=== PATIENT | male | born 1935 | race Caucasian/White ===

== ENCOUNTER 2022-07-31 07:26 | Inpatient (IN) | payer BC ==
[~2022-07-31] VITALS: Ht 175.3 cm; Wt 74.9 kg
[2022-07-31 08:05] LABS: Basophils # (auto) 0 10 ^3/uL (0-0.2); Basophils % (auto) 0.2 % (0.0-2.0); Eosinophils # (auto) 0 10 ^3/uL (0-0.8); Hematocrit 44.7 % (41.0-53.0); Hemoglobin 15.7 g/dL (13.5-17.5); Lymphocytes # (auto) 1.1 10 ^3/uL (0.4-5.4); Lymphocytes % (auto) 14.2 % (10.0-50.0); Mean Corpuscular Hemoglobin 32.7 pg (28.0-32.0); Mean Corpuscular Hgb Conc. 35.2 g/dL (32.0-36.0); Mean Corpuscular Volume 92.9 fL (80.0-100.0); Monocytes % (auto) 13.3 % (0.0-12.0); Neutrophils # (auto) 5.6 10 ^3/uL (1.6-8.6); Neutrophils % (auto) 72.3 % (37.0-80.0); Nucleated Red Blood Cells % 0.1 %; Red Blood Cells 4.81 10^6/uL (4.5-5.90); Red Cell Distribution Width 12.6 % (11.8-14.3); White Blood Cell 7.8 10^3/uL (4.4-10.8)
[2022-07-31 08:16] LABS: Albumin 3.4 g/dL (3.4-5.0); Calcium 8.6 mg/dL (8.5-10.1); Potassium 4.2 mmol/L (3.5-5.1)
[2022-07-31 08:20] LABS: Bilirubin, Total 0.8 mg/dL (0.2-1.0); Total Protein 6.9 g/dL (6.4-8.2)
[2022-07-31] MEDS ORDERED: ACETAMINOPHEN 325 MG TAB PO PRN (10:15)
[2022-07-31] MEDS ORDERED: ONDANSETRON HCL 4 MG/2 ML VIAL IV PRN (10:15)
[2022-07-31] MEDS ORDERED: DOCUSATE SOD 100 MG CAP PO PRN (10:15)
[2022-07-31] MEDS ORDERED: SODIUM CHLORIDE 0.9% 1,000 ML IV ONE (10:15)
[2022-07-31] MEDS ORDERED: SODIUM CHLORIDE 0.9% 1,000 ML IV SCH (10:15)
[2022-07-31] MEDS ORDERED: NITROGLYCERIN 0.4 MG SL TAB SL PRN (10:15)
[2022-07-31] MEDS ORDERED: MORPHINE SULFATE INJ 2 MG/ml SYRG IV PRN (10:15)
[2022-07-31] MEDS ORDERED: ALBUTEROL SULF HFA 90MCG INH 200DOSE IN PRN (10:30)
[2022-07-31] MEDS ORDERED: REMDESIVIR PER PHARMACY 0 ML IV SCH (10:30)
[2022-07-31] MEDS ORDERED: ACETAMINOPHEN 500 MG TAB PO PRN (10:30)
[2022-07-31 11:10] LABS: Magnesium 2.4 mg/dL (1.6-2.6)
[2022-07-31 11:23] LABS: Thyroid Stimulating Hormone 1.6 uIU/mL (0.358-3.74)
[2022-07-31 11:53] LABS: CRP High Sensitivity 8.2 mg/dL (< 0.3)
[2022-07-31 12:54] LABS: Urine WBC None Seen /hpf (0 - 3)
[2022-07-31 13:08] LABS: Urine Bacteria NONE SEEN /hpf (None Seen); Urine Blood 1+ /uL (Negative); Urine Hyaline Cast MANY /lpf (0 - 2); Urine Mucus FEW (None Seen); Urine Specific Gravity 1.015 (1.001-1.035)
[2022-07-31] MEDS: HEPARIN SODIUM (PORCINE) 5000 UNITS/ML 1ML VIAL SC SCH ×2 (13:47→21:43)
[2022-07-31 16:06] VITALS: BP 111/54
[2022-07-31] MEDS: SODIUM CHLORIDE 0.9% 1,000 ML IV SCH (19:45)
[2022-07-31] MEDS: ATORVASTATIN 20 MG TAB PO SCH (21:40)
[2022-08-01 00:15] VITALS: BP 126/63
[2022-08-01] MEDS ORDERED: ASPI1TAB20 PO (00:37)
[2022-08-01] MEDS ORDERED: LISI20TA28 PO (00:37)
[2022-08-01] MEDS ORDERED: ATOR20TA PO (00:37)
[2022-08-01 05:00] VITALS: BP 107/58
[2022-08-01 05:36] LABS: Basophils # (auto) 0 10 ^3/uL (0-0.2); Basophils % (auto) 0.1 % (0.0-2.0); Eosinophils # (auto) 0 10 ^3/uL (0-0.8); Hematocrit 40.8 % (41.0-53.0); Hemoglobin 14.4 g/dL (13.5-17.5); Lymphocytes # (auto) 0.9 10 ^3/uL (0.4-5.4); Lymphocytes % (auto) 24.1 % (10.0-50.0); Mean Corpuscular Hemoglobin 32.7 pg (28.0-32.0); Mean Corpuscular Hgb Conc. 35.3 g/dL (32.0-36.0); Mean Corpuscular Volume 92.7 fL (80.0-100.0); Monocytes # (auto) 0.6 10 ^3/uL (0-1.3); Monocytes % (auto) 17.4 % (0.0-12.0); Neutrophils # (auto) 2.1 10 ^3/uL (1.6-8.6); Neutrophils % (auto) 58.4 % (37.0-80.0); Nucleated Red Blood Cells % 0.1 %; Red Cell Distribution Width 12.7 % (11.8-14.3); White Blood Cell 3.7 10^3/uL (4.4-10.8)
[2022-08-01 05:44] LABS: Albumin 2.6 g/dL (3.4-5.0); Calcium 8.4 mg/dL (8.5-10.1); Potassium 5.2 mmol/L (3.5-5.1)
[2022-08-01 05:46] LABS: BUN/Creatinine Ratio 25.4
[2022-08-01 05:56] LABS: Bilirubin, Total 0.6 mg/dL (0.2-1.0); Total Protein 5.7 g/dL (6.4-8.2)
[2022-08-01] MEDS: HEPARIN SODIUM (PORCINE) 5000 UNITS/ML 1ML VIAL SC SCH ×3 (06:25→22:21)
[2022-08-01] MEDS: SODIUM CHLORIDE 0.9% 1,000 ML IV SCH (06:28)
[2022-08-01 08:48] VITALS: BP 104/52
[2022-08-01] MEDS ORDERED: AZITHROMYCIN 500MG/ 250ML 250 ML IV SCH (10:00)
[2022-08-01] MEDS ORDERED: LISINOPRIL 5 MG TAB PO SCH (10:00)
[2022-08-01] MEDS: CHOLECALCIFEROL (VITD3) 2,000 UNIT CAP/TAB PO SCH (10:00)
[2022-08-01] MEDS: ASPirin 81 mg TAB PO SCH (10:00)
[2022-08-01] MEDS: ASCORBIC ACID 1,000 MG TAB PO SCH (10:00)
[2022-08-01] MEDS: ZINC SULFATE 220mg CAP or TAB PO SCH (10:00)
[2022-08-01] MEDS: DexAMETHasone SOD PHOS 10MG/1ML VIAL INJ IV SCH (10:38)
[2022-08-01] MEDS: PANTOPRAZOLE 40 MG/10 ML VIAL INJ IV SCH (10:38)
[2022-08-01 13:00] VITALS: BP 95/40
[2022-08-01 14:46] LABS: Creatinine, Urine 201 mg/dL (30.0-125.0); Sodium Urine 38 mmol/L (40-220)
[2022-08-01 14:56] LABS: Cholesterol 159 mg/dL (< 200); HDL Cholesterol 32 mg/dL (40-59); LDL Cholesterol 98 mg/dL (< 100); Triglycerides 212 mg/dL (< 150)
[2022-08-01 16:45] VITALS: BP 96/63
[2022-08-01] MEDS ORDERED: AMOX250C3 PO (17:14)
[2022-08-01] MEDS: SODIUM BICARBONATE 50ML VIAL 50 ML in SOD CHL 0.45% 1,000 ML IV SCH (20:04)
[2022-08-01 22:00] VITALS: BP 109/66
[2022-08-01] MEDS: ATORVASTATIN 20 MG TAB PO SCH (22:20)
[2022-08-01] MEDS: AMOXICILLIN TRIHYDRATE 250 MG CAP PO SCH (22:20)
[2022-08-02] MEDS: SODIUM BICARBONATE 50ML VIAL 50 ML in SOD CHL 0.45% 1,000 ML IV SCH ×2 (02:30→13:00)
[2022-08-02 05:00] VITALS: BP 133/70
[2022-08-02] MEDS: HEPARIN SODIUM (PORCINE) 5000 UNITS/ML 1ML VIAL SC SCH ×2 (06:21→14:47)
[2022-08-02 06:52] LABS: Albumin 2.9 g/dL (3.4-5.0); BUN/Creatinine Ratio 27.3; Bilirubin, Total 0.5 mg/dL (0.2-1.0); Calcium 8.7 mg/dL (8.5-10.1); Total Protein 6.5 g/dL (6.4-8.2)
[2022-08-02 08:00] VITALS: BP 123/67
[2022-08-02] MEDS ORDERED: SODIUM ZIRCONIUM CYCL 10 GM PAK PO ONE (08:00)
[2022-08-02] MEDS: ASCORBIC ACID 1,000 MG TAB PO SCH (09:09)
[2022-08-02] MEDS: CHOLECALCIFEROL (VITD3) 2,000 UNIT CAP/TAB PO SCH (09:09)
[2022-08-02] MEDS: ZINC SULFATE 220mg CAP or TAB PO SCH (09:09)
[2022-08-02] MEDS: ASPirin 81 mg TAB PO SCH (09:09)
[2022-08-02] MEDS: DexAMETHasone SOD PHOS 10MG/1ML VIAL INJ IV SCH (09:09)
[2022-08-02] MEDS: PANTOPRAZOLE 40 MG/10 ML VIAL INJ IV SCH (09:09)
[2022-08-02] MEDS: AMOXICILLIN TRIHYDRATE 250 MG CAP PO SCH (11:07)
[2022-08-02 12:00] VITALS: BP 125/66
[2022-08-02] MEDS ORDERED: METH4PAK PO (14:41)
[2022-08-02 15:31] VITALS: BP 124/66
[2022-08-02 16:00] VITALS: BP 119/68
[2022-08-02] MEDS ORDERED: AMOXICILLIN TRIHYDRATE 250 MG CAP PO SCH (22:00)
[2022-08-03 11:50] LABS: Potassium 5.6 mmol/L (3.5-5.1)
== END 2022-08-02 17:57 | disposition home or self-care (01) | DRG 177 ==
LOC: ER 07:42 → OVERFLOW 10:25 → EAST 22:36
PROVIDERS: ADMIT Nurse Practitioner Family; ATTEND Internal Medicine
PROC: XW033E5 Introduction of Remdesivir Anti-infective into Peripheral Vein, Percutaneous Approach, New Technology Group 5 (ICD-10-PCS; principal; 2022-07-31)
DX: U07.1 COVID-19 (principal); J12.82 Pneumonia due to coronavirus disease 2019; N17.0 Acute kidney failure with tubular necrosis; E87.0 Hyperosmolality and hypernatremia; E87.20 Acidosis, unspecified; E55.9 Vitamin D deficiency, unspecified; E78.5 Hyperlipidemia, unspecified; E86.0 Dehydration; E87.5 Hyperkalemia; F32.A Depression, unspecified; I12.9 Hypertensive chronic kidney disease with stage 1 through stage 4 chronic kidney disease, or unspecified chronic kidney disease; I25.10 Atherosclerotic heart disease of native coronary artery without angina pectoris; N18.9 Chronic kidney disease, unspecified; Z80.3 Family history of malignant neoplasm of breast; Z82.49 Family history of ischemic heart disease and other diseases of the circulatory system
CPT/HCPCS: 36415; 71046; 76700; 80053; 80061; 81001; 82306; 82570; 82728; 83605; 83615; 83735; 83970; 84100; 84132; 84300; 84443; 84484; 85025; 85379; 86141; 87040; 87426; 87804; 93005; 96361; 96365; C9113; G0378; J1100